=== PATIENT | male | born 1960 | race Caucasian/White ===

== ENCOUNTER 2018-05-26 23:04 | Emergency (ER) | payer SELFPAY, OTHER ==
[2018-05-26] MEDS: FLUORESCEIN STRIP LEFT EYE (23:29)
[2018-05-26] MEDS: TETRACAINE 0.5% 4 ML OPH OP (23:29)
== END 2018-05-27 00:54 | disposition home or self-care (01) ==
LOC: FTE 05-27 00:54
DX: H57.89 Other specified disorders of eye and adnexa (principal)
CPT/HCPCS: 99283